=== PATIENT | male | born 1985 | race Caucasian/White ===

== ENCOUNTER 2022-07-05 08:30 | Emergency (ER) | payer MEDICAID, SELFPAY ==
[2022-07-05 09:10] VITALS: BP 139/78; PULSE 71; RESP 21; TEMP 36.7; O2SAT 98; BMI 24.4
--- NOTE | 2022-07-05 09:37 | EXP.UTC ---
Discharge Plan Disposition Patient Disposition: Home, Self-Care Condition: Good Prescriptions Prescriptions: New azithromycin [Zithromax Z-Dillon] 250 mg tablet See Rx Instructions .ROUTE .COMPLEX 5 Days Qty: 6 0RF Rx Instructions: For 250 mg dose pack: take 500 mg today (day 1), then 250 mg for 4 days (days 2-5) methylprednisolone [Medrol (Dillon)] 4 mg tablets,dose pack 4 mg PO DAILY Qty: 21 0RF meclizine 12.5 mg tablet 12.5 mg PO TID PRN (Reason: dizziness) Qty: 14 0RF Referrals Follow up/Referrals: Provider,Referral, MD [Primary Care Provider] - See instructions Activity Restrictions/Add. Instructions Additional Instructions/Restrictions: *Monitor Temp, Over the counter Motrin or Tylenol as directed/as needed Tylenol every 4 hours and Motrin every 6 hours (as long as your family doctor has told you that you can take it) for fever or pain. and straight to ER if unable to lower temp less than 101.0 after medication given *Warm salt water gargles may help to soothe the throat *Throat Lozenges? *Warm fluids like tea with honey may help to soothe the throat? *Sleep elevated *Humidifier/Vaporizer Your throat swab was sent for culture. Those results are typically sent to your primary care. Be sure to follow up in 2-3 days with your family doctor/primary care physician if no improvement so they can review those result and treat if necessary. If you don?t have a primary care doctor, I recommend you get one but in the mean time, you will have to return to a walk in clinic Follow up IMMEDIATELY for new or worsening symptoms or no Noticeable improvement over the next 48-72 hours. 911 for difficulty breathing or swallowing You were tested for today for COVID19 your test result should be back in the next 24-48 hours, you may check your results on the [facility] My Health Portal Make sure to take your Vitamins Vit. C Vit D and Zinc if you can take them Clinical Impressions Clinical Impression: URI (upper respiratory infection) Stand Alone Forms Stand Alone Forms: Work/School Release Instructions Patient Instructions: Sore Throat, Vertigo Discharge ED Provider: Jane Bello [facility] [place] HPI General Stated complaint: sore throat,head pain Mode of Arrival: Ambulatory Source of Information: Patient Limitations: No Limitations Time Seen by Provider: 07/05/22 09:37 Description of Symptoms (Recalled from Triage Doc. by RN): PATIENT C/O SORE THROAT AND HEAD PRESSURE SINCE LAST NIGHT HEENT Symptoms (Recalled from RN notes): No Resp Symptoms (Recalled from RN notes): No Skin Symptoms (Recalled from RN notes): Yes MS Symptoms (Recalled from RN notes): No Functional Status (Recalled from RN notes): WNL History of Present Illness Provider Complaint: Patient states that he went to [facility] over the weekend for company get away States that yesterday he started with sore throat, pressure in his sinuses and pain in his left ear State that this morning he felt a little dizzy when he got up and his daughter is feeling ill so he came in for them to get checked out Related Data Previous Rx's Medication Instructions Recorded azithromycin 250 mg tablet See Rx Instructions PO .COMPLEX 5 07/05/22 (Zithromax Z-Dillon) days #6 tabs meclizine 12.5 mg tablet 12.5 mg PO TID PRN dizziness #14 07/05/22 tabs methylprednisolone 4 mg tablets in 4 mg PO DAILY #21 tabs 07/05/22 a dose pack (Medrol (Dillon)) Allergies Allergy/AdvReac Type Severity Reaction Status Date / Time No Known Allergies Allergy Verified 07/05/22 09:28 Worker's Comp Is this a Worker's Comp case?: No [facility] Medical History (Updated 07/05/22 @ 09:46 by Jane Bello APRN) No significant past medical history Social History (Updated 07/05/22 @ 09:28 by Kenisha Arteaga RN) Smoking Status: Unknown if ever smoked alcohol intake: never current occupational status: other Travel in the last 8 weeks: None KALEN Manzanares
[2022-07-05 09:42] LABS: UTC Strep Screen (Rapid) Negative (Negative)
[2022-07-05 09:49] VITALS: BP 139/78; PULSE 71; RESP 21; TEMP 36.7; O2SAT 98
[2022-07-05 10:01] LABS: Adenovirus,PCR Not Detected (NotDetected); Bordetella Pertussis Not Detected (NotDetected); Chlamydophila Pneumoniae, PCR Not Detected (NotDetected); Coronavirus 19, PCR Not Detected (NotDetected); Coronavirus 229E Not Detected (NotDetected); Coronavirus NL63 Not Detected (NotDetected); Coronavirus OC43 Not Detected (NotDetected); Coronovirus HKU1,PCR Not Detected (NotDetected); Human Metapneumovirus Not Detected (NotDetected); Influenza A, PCR Not Detected (NotDetected); Influenza AH1, 2009 Not Detected (NotDetected); Influenza AH1, PCR Not Detected (NotDetected); Influenza AH3,PCR Not Detected (NotDetected); Influenza B, PCR Not Detected (NotDetected); Mycoplasma Pneumoniae, PCR Not Detected (NotDetected); Parainfluenza 1, PCR Not Detected (NotDetected); Parainfluenza 2, PCR Not Detected (NotDetected); Parainfluenza 3, PCR Not Detected (NotDetected); Parainfluenza 4, PCR Not Detected (NotDetected); Respiratory Syncytial Virus Not Detected (NotDetected)
[2022-07-05 11:34] LABS: Rhinovirus/Enterovirus Detected (NotDetected)
== END 2022-07-05 10:01 | disposition home or self-care (01) ==
PROVIDERS: Emergency Provider Nurse Practitioner
DX: J02.9 Acute pharyngitis, unspecified (principal); H92.09 Otalgia, unspecified ear; J06.9 Acute upper respiratory infection, unspecified; R42 Dizziness and giddiness; R51.9 Headache, unspecified; B34.1 Enterovirus infection, unspecified; Z20.822 Contact with and (suspected) exposure to COVID-19; Z79.52 Long term (current) use of systemic steroids
CPT/HCPCS: 87581; 87632; 87798; 87880; 99213; C9803; G0463; U0003; U0005

== ENCOUNTER 2023-03-03 08:47 | Emergency (ER) | payer MEDICAID, SELFPAY ==
[2023-03-03 08:47] VITALS: BP 133/92; PULSE 55; RESP 16; TEMP 36.6; O2SAT 99; BMI 23.0
--- NOTE | 2023-03-03 09:00 | EXP.UTC ---
Discharge Plan Disposition Patient Disposition: Home, Self-Care Condition: Good Prescriptions Prescriptions: New erythromycin 5 mg/gram (0.5 %) ointment 0.5 inch ophthalmic (eye) QID 7 Days Qty: 3.5 0RF No Action azithromycin [Zithromax Z-Dillon] 250 mg tablet See Rx Instructions .ROUTE .COMPLEX 5 Days Qty: 6 0RF Rx Instructions: For 250 mg dose pack: take 500 mg today (day 1), then 250 mg for 4 days (days 2-5) methylprednisolone [Medrol (Dillon)] 4 mg tablets,dose pack 4 mg PO DAILY Qty: 21 0RF meclizine 12.5 mg tablet 12.5 mg PO TID PRN (Reason: dizziness) Qty: 14 0RF Referrals Follow up/Referrals: Provider,Referral, MD [Primary Care Provider] - See instructions Clinical Impressions Clinical Impression: Conjunctivitis of right eye Instructions Patient Instructions: Conjunctivitis, DI for Conjunctivitis Discharge ED Provider: Randolph James [facility] [place] HPI General Stated complaint: right eye redness/swelling Mode of Arrival: Ambulatory Source of Information: Patient Limitations: No Limitations Time Seen by Provider: 03/03/23 08:50 Description of Symptoms (Recalled from Triage Doc. by RN): Possible pink eye in the right eye. Complaint of redness and soreness since yesterday. HEENT Symptoms (Recalled from RN notes): Yes Resp Symptoms (Recalled from RN notes): No Skin Symptoms (Recalled from RN notes): No MS Symptoms (Recalled from RN notes): No Functional Status (Recalled from RN notes): wnl History of Present Illness Provider Complaint: He states that for the past 2 days he has had worsening right eye redness and irritation. He denies any known injury or foreign body, but he does work as a gas welder apprentice. Related Data Previous Rx's Medication Instructions Recorded azithromycin 250 mg tablet See Rx Instructions PO .COMPLEX 5 07/05/22 (Zithromax Z-Dillon) days #6 tabs meclizine 12.5 mg tablet 12.5 mg PO TID PRN dizziness #14 07/05/22 tabs methylprednisolone 4 mg tablets in 4 mg PO DAILY #21 tabs 07/05/22 a dose pack (Medrol (Dillon)) erythromycin 5 mg/gram (0.5 %) eye 0.5 inch ophthalmic (eye) QID 7 03/03/23 ointment days #3.5 grams Allergies Allergy/AdvReac Type Severity Reaction Status Date / Time No Known Allergies Allergy Verified 07/05/22 09:28 Worker's Comp Is this a Worker's Comp case?: No [facility] Disclaimer: The information contained in this section may have been updated after the patient was seen, as this information can be updated by other users. Medical History No significant past medical history Social History Smoking Status: Unknown if ever smoked alcohol intake: never current occupational status: other Travel in the last 8 weeks: None ROS Obtained: Yes All systems reviewed & no additional complaints except as documented Constitutional Constitutional: Denies chills and Denies fever(s) Eyes Eyes: Reports eye discharge ENT Ears, Nose, Mouth, and Throat: Denies dizziness, Denies otalgia and Denies sore throat Cardiovascular Cardiovascular: Denies chest pain Respiratory Respiratory: Denies shortness of breath, Denies chest congestion, Denies cough, Denies stridor and Denies wheezing Gastrointestinal Gastrointestingal: Denies nausea or vomiting Musculoskeletal Musculoskeletal: Reports system reviewed and no additional complaints, except as documented and Denies arthralgias Integumentary/Breasts Skin/Breast: Denies rash Neurologic Neurologic: Denies dizziness and Denies paresthesias Allergic/Immunologic Allergic/Immunologic: Denies wheezing Physical Exam General General appearance: alert and in no apparent distress Head Head exam: atraumatic, normocephalic and normal inspection Eye Eye exam: Present PERRL and EOMI Expanded Eye Exam Eyelids: left: normal inspection and right: erythema Pupils: Left: size (3), Right: size (3) and Bilateral: regular, round
[2023-03-03 10:07] VITALS: BP 133/92; PULSE 55; RESP 16; TEMP 36.6; O2SAT 99
== END 2023-03-03 10:08 | disposition home or self-care (01) ==
PROVIDERS: Emergency Provider Nurse Practitioner Family
DX: H10.31 Unspecified acute conjunctivitis, right eye (principal)
CPT/HCPCS: 99212; 99214; G0463

== ENCOUNTER 2023-11-22 12:45 | Emergency (ER) | payer MEDICAID, SELFPAY ==
[2023-11-22 13:55] VITALS: BP 132/77; PULSE 63; RESP 20; TEMP 36.7; O2SAT 98; BMI 26.1
--- NOTE | 2023-11-22 14:09 | EXP.UTC ---
Discharge Plan Disposition Patient Disposition: Home, Self-Care Condition: Good Prescriptions Prescriptions: New azithromycin [Zithromax Z-Dillon] 250 mg tablet See Rx Instructions .ROUTE .COMPLEX 5 Days Qty: 6 0RF Rx Instructions: For 250 mg dose pack: take 500 mg today (day 1), then 250 mg for 4 days (days 2-5) benzonatate 100 mg capsule 100 mg PO TID PRN (Reason: cough) Qty: 30 0RF methylprednisolone [Medrol (Dillon)] 4 mg tablets,dose pack See Rx Instructions .Route .COMPLEX 6 Days Qty: 21 0RF Rx Instructions: taper pack; Referrals Follow up/Referrals: Provider,Referral, MD [Primary Care Provider] - See instructions Activity Restrictions/Add. Instructions Additional Instructions/Restrictions: *Monitor Temp, Over the counter Motrin or Tylenol as directed/as needed Tylenol every 4 hours and Motrin every 6 hours (as long as your family doctor has told you that you can take it) for fever or pain. and straight to ER if unable to lower temp less than 101.0 after medication given *Warm salt water gargles may help to soothe the throat *Throat Lozenges? *Warm fluids like tea with honey may help to soothe the throat? *Sleep elevated *Humidifier/Vaporizer Your throat swab was sent for culture. Those results are typically sent to your primary care. Be sure to follow up in 2-3 days with your family doctor/primary care physician if no improvement so they can review those result and treat if necessary. If you don?t have a primary care doctor, I recommend you get one but in the mean time, you will have to return to a walk in clinic Follow up IMMEDIATELY for new or worsening symptoms or no Noticeable improvement over the next 48-72 hours. 911 for difficulty breathing or swallowing Clinical Impressions Clinical Impression: URI (upper respiratory infection) Qualifiers: URI type: unspecified URI Qualified Code(s): J06.9 - Acute upper respiratory infection, unspecified Instructions Patient Instructions: Sore Throat, Cough Discharge ED Provider: Jane Bello [facility] General Stated complaint: cough, headache Mode of Arrival: Ambulatory Source of Information: Patient Limitations: No Limitations Time Seen by Provider: 02/13/24 14:09 Description of Symptoms (Recalled from Triage Doc. by RN): PATIENT C/O COUGH AND SORE THROAT SINCE TUESDAY HEENT Symptoms (Recalled from RN notes): Yes Resp Symptoms (Recalled from RN notes): Yes Skin Symptoms (Recalled from RN notes): No MS Symptoms (Recalled from RN notes): No Functional Status (Recalled from RN notes): WNL History of Present Illness Provider Complaint: Patient states that he started feeling bad on Tuesday with sore throat, cough, nasal congestion and pressure States that today he was still not feeling well so he came in to get checked Related Data Previous Rx's Medication Instructions Recorded azithromycin 250 mg tablet See Rx Instructions PO .COMPLEX 5 11/22/23 (Zithromax Z-Dillon) days #6 tabs benzonatate 100 mg capsule 100 mg PO TID PRN cough #30 caps 11/22/23 methylprednisolone 4 mg tablets in See Rx Instructions .Route 11/22/23 a dose pack (Medrol (Dillon)) .COMPLEX 6 days #21 tabs Allergies Allergy/AdvReac Type Severity Reaction Status Date / Time No Known Allergies Allergy Verified 07/05/22 09:28 Worker's Comp Is this a Worker's Comp case?: No [facility] Disclaimer: The information contained in this section may have been updated after the patient was seen, as this information can be updated by other users. Medical History No significant past medical history Social History Smoking Status: Unknown if ever smoked alcohol intake: never current occupational status: other Travel in the last 8 weeks: None ROS Obtained: Yes All systems reviewed & no additional complaints except as documented and Yes Systems reviewed as appropriate & no additional complaints except as documented Constitutional Constitutional: Reports system reviewed and no additional complaints, except as documented, Reports as per HPI, Reports fever(s) and Reports headache(s) ENT Ears, Nose, Mouth, and Throat: Reports system reviewed and no additional complaints, except as documented, Reports as per HPI, Reports headache(s), Reports nasal congestion, Reports nasal discharge and Reports sore throat Cardiovascular Cardiovascular: Reports system reviewed and no additional complaints, except as documented and Reports as per HPI Respiratory Respiratory: Reports system reviewed and no additional complaints, except as documented, Reports as per HPI and Reports cough Gastrointestinal Gastrointestingal: Reports system reviewed and no additional complaints, except as documented and as per HPI Musculoskeletal Musculoskeletal: Reports system reviewed and no additional complaints, except as documented and Reports as per HPI Neurologic Neurologic: Reports system reviewed and no additional complaints, except as documented, Reports as per HPI and Reports headache(s) Physical Exam General General appearance: alert and in no apparent distress ENT ENT exam: Present mucous membranes moist Expanded ENT Exam Nose exam: Present sinus tenderness Throat exam: Present tonsillar erythema Respiratory Respiratory exam: Present normal lung sounds bilaterally; Absent respiratory distress or wheezes Cardiovascular Cardiovascular exam: Present regular rate, normal rhythm and normal heart sounds Neurological Exam Neurological exam: Present alert, oriented X3 and normal gait Medical Decision Making Timur Inquiry Pt receiving controlled substance: No Timur was queried for this patient: No Vital Signs: 11/22/23 13:55 Temperature 98.0 F Temperature Source Oral Pulse Rate [Left Brachial] 63 Respiratory Rate 20 Blood Pressure [Left Arm] 132/77 Blood Pressure Mean [Left Arm] 95 Blood Pressure Source [Left Arm] Automatic Cuff Blood Pressure Position [Left Arm] Sitting 02 Sat by Pulse Oximetry 98 Oxygen Delivery Method Room Air Lab Data Lab results reviewed: Yes I reviewed the patient's lab results.
[2023-11-22 14:23] LABS: UTC Influenza A Antigen Negative (Negative); UTC Influenza B Antigen Negative (Negative); UTC Strep Screen (Rapid) Negative (Negative)
[2023-11-22 14:25] VITALS: BP 132/77; PULSE 63; RESP 20; TEMP 36.7; O2SAT 98
== END 2023-11-22 14:28 | disposition home or self-care (01) ==
PROVIDERS: Emergency Provider Nurse Practitioner
DX: R51.9 Headache, unspecified (principal); R05.9 Cough, unspecified; R50.9 Fever, unspecified; R07.0 Pain in throat; J06.9 Acute upper respiratory infection, unspecified; R09.81 Nasal congestion
CPT/HCPCS: 87804; 87880; 99212; 99214; G0463